=== PATIENT | female | born 1980 | race Caucasian/White ===

== ENCOUNTER 2018-07-17 12:00 | Outpatient (CLI) | payer OTHER | END 2018-07-17 12:01 | disposition home or self-care (01) | LOC: DTY/OP 12:00 | PROVIDERS: ATTEND Surgery | DX: E66.01 Morbid (severe) obesity due to excess calories (principal) | CPT/HCPCS: 97802 ==

== ENCOUNTER 2018-08-25 12:00 | Inpatient (IN) | payer OTHER ==
[2018-08-25 12:39] VITALS: BMI 40.6
[2018-09-03] MEDS ORDERED: CEFAZOLIN 2 GM/50 ML BAG ONE (07:44)
[2018-09-03] MEDS ORDERED: Heparin 5,000 UNITS/ML VIAL ONE (07:45)
[2018-09-03] MEDS ORDERED: Bupivacaine/Epinephrine 0.25% 30 ML VIAL ONE (09:06)
[2018-09-03] MEDS ORDERED: Famotidine/PF 20 mg/2ml Vial ONE (09:12)
[2018-09-03] MEDS ORDERED: Fentanyl 100 MCG/2 ML VIAL ONE ×2 (09:12)
[2018-09-03] MEDS ORDERED: Meperidine HCl/PF 25 MG/ML VIAL ONE (09:12)
[2018-09-03] MEDS ORDERED: Promethazine HCl 25 MG/ML VIAL ONE (11:04)
[2018-09-03] MEDS ORDERED: Ondansetron PF 4 MG/2 ML Vial IVP PRN ×2 (11:13→13:52)
[2018-09-03] MEDS ORDERED: diphenhydrAMINE 50 MG/ML VIAL IVP PRN ×2 (11:13→13:52)
[2018-09-03] MEDS ORDERED: diphenhydrAMINE 50 MG/ML VIAL IM PRN (11:13)
[2018-09-03] MEDS ORDERED: Promethazine HCl 25 MG/ML VIAL IM PRN ×2 (11:13→13:52)
[2018-09-03] MEDS ORDERED: diphenhydrAMINE 25 MG CAP PO PRN (11:13)
[2018-09-03] MEDS ORDERED: Naloxone HCl 0.4 mg/ml Vial IV PRN (11:13)
[2018-09-03] MEDS ORDERED: Zolpidem Tartrate 5 MG TAB PO PRN (11:13)
[2018-09-03] MEDS ORDERED: HYDROmorphone 10 mg/100 ml CADD IVPB PRN (11:13)
[2018-09-03] MEDS ORDERED: Communication Order-Pharmacy FS SCH (11:15)
[2018-09-03] MEDS ORDERED: Dextrose 5% in Water 1,000 ML IV PRN (13:52)
[2018-09-03] MEDS ORDERED: Hydrocodone-Acetamin 15 ML UDCUP PO PRN (13:52)
[2018-09-03] MEDS ORDERED: Dextrose 50% Abboject 50 ML SYRINGE SLOW IVP PRN (13:52)
[2018-09-03] MEDS ORDERED: hydrALAZINE 20 MG/ML VIAL SLOW IVP PRN (13:52)
[2018-09-03] MEDS ORDERED: PROVENTIL INHALER 6.7 G (200 INHALATIONS) INH PRN (14:00)
[2018-09-03] MEDS: D5 1/2 NS w/20 mEq KCL 1,000 ML IV SCH ×3 (14:24→21:49)
[2018-09-03] MEDS: Acetaminophen 1,000 MG in Premix Bag 1 BAG IVPB SCH ×2 (14:51→20:25)
--- NOTE | 2018-09-03 15:05 | OP ---
DATE OF PROCEDURE: 09/03/2018 PREOPERATIVE DIAGNOSIS: Morbid obesity with a BMI of 41. POSTOPERATIVE DIAGNOSES: 1. Morbid obesity with a BMI of 41. 2. Paraesophageal hiatal hernia. 3. Epigastric hernia. PROCEDURES: 1. Laparoscopic sleeve gastrectomy with [place] staple line reinforcement, 38-[place] bougie. 2. Laparoscopic repair of hiatal hernia without fundoplication or mesh. 3. Ventral hernia repair without mesh. 4. Esophagogastroduodenoscopy. ANESTHESIA: General. ESTIMATED BLOOD LOSS: Minimal. COMPLICATIONS: None. SPECIMEN: Stomach. FINDINGS: Hiatal hernia. TECHNIQUE: The patient was taken to the operating room, laid in the supine position on the operating room table. After general anesthetic was obtained, the arms and legs were double strapped to bariatric table. OG tube was used to decompress the stomach. The abdomen was prepped and draped in a sterile fashion. Left subcostal 5-mm Optiview trocar was placed in usual fashion and high-flow pneumoperitoneum was obtained. Left and right abdominal 12-mm ports as well as a right subcostal 5-mm port were placed under direct visualization. A 5-mm incision was made at the xiphoid and Teresa was used to raise the liver off the GE junction. Short gastrics were taken down to the mid body of stomach to left luis of diaphragm. Left luis, posterior fundus, and angle of His were completely dissected. Paraesophageal hiatal hernia was found. Short gastrics were taken down to a distance of 5 cm proximal to the pylorus. Bougie was brought in with its tip left in the antrum of the stomach. Multiple loads of the [place] stapling device were used to perform the sleeve. The first was fired at a distance of 6 cm proximal to the pylorus angled up towards the incisura. Multiple loads were fired up along the bougie. Stomach was completely transected at the angle of His. Stomach was removed from the left abdominal incision. This fascial defect was closed using GraNee needle and 0 Vicryl tie. Circumferential dissection of the esophagus was performed after opening the gastrohepatic ligament, bringing the GE junction back down into the abdominal cavity. Ethibond suture and a tie-knot system was used to reapproximate the crura posteriorly. Bougie was removed and an EGD was passed from the esophagus, stomach to the level of duodenum without obstruction. There was no air leakage or bleeding through the staple line. There was no evidence of stricture at the incisura. No evidence of stenosis at the GE junction or at the diaphragmatic hiatus. The EGD scope was used to decompress the stomach. It was pulled and removed. Teresa retractor was removed under direct visualization without bleeding. A few bleeders on the staple line were clipped using a laparoscopic clip. All incisions were infiltrated using local anesthetic. All ports were removed under camera visualization without bleeding. A pneumoperitoneum was let down. Vicryl was used to close the fascial defect from the left abdominal incision. All incisions were irrigated and closed using 4-0 Monocryl and Dermabond. Over the patient's palpable small epigastric hernia, a transverse incision was made. Cautery was dissected down to the hernia sac. The hernia sac was dissected away from the fascial edges. The hernia was closed using an interrupted Maxon suture. All incisions were closed using 4-0 Monocryl and Dermabond. The patient was sent to Recovery in stable condition. All instrument counts, needle counts, and lap counts were correct. Job ID: [id number]
[2018-09-03] MEDS ORDERED: Enoxaparin Sodium 40 MG/0.4 ML SYRINGE SC SCH (21:00)
[2018-09-04] MEDS: Acetaminophen 1,000 MG in Premix Bag 1 BAG IVPB SCH ×2 (02:20→08:36)
[2018-09-04] MEDS: D5 1/2 NS w/20 mEq KCL 1,000 ML IV SCH (04:08)
[2018-09-04 06:45] LABS: #Lymphocytes 1.2 thou/uL (1.20-3.40); #Neutrophils 12.1 thou/uL (1.40-6.50); %Basophils 0.1 % (0.0-1.0); %Eosinophils 0.1 % (0.0-10.0); %Lymphocytes 8.1 % (21.0-51.0); %Monocytes 7.1 % (0.0-10.0); %Neutrophils 84.6 % (42.0-75.0); Hemoglobin 13.9 g/dL (12.0-16.0); Mean Corpuscular HGB CONC 33.6 g/dL (32.0-36.0); Mean Corpuscular Hemoglobin 29.4 pg (27.0-31.0); Mean Corpuscular Volume 87.3 fL (78.0-98.0); Mean Platelet Volume 6.3 fL (7.4-10.4); Platelet Count 290 thou/uL (130-400); RBC Distribution Width 11.9 % (11.5-14.5); Red Blood Cell (RBC) Count 4.74 mill/uL (4.20-5.40); White Blood Cell (WBC) Count 14.3 thou/uL (4.8-10.8)
[2018-09-04 07:00] LABS: Anion Gap 11 mmol/L (10-20); BUN (Urea Nitrogen) 6 mg/dL (7.0-18.7); Calc. Creatinine Clearance 188 mL/min (70-130); Calcium 9.3 mg/dL (7.8-10.44); Carbon Dioxide 26 mmol/L (22-29); Chloride 106 mmol/L (98-107); Estimated GFR-MDRD 88; Glucose 120 mg/dL (70-105); Sodium 139 mmol/L (136-145)
[2018-09-04 07:56] VITALS: BP 123/81; TEMP 98.7
[2018-09-04] MEDS ORDERED: Pantoprazole 40 MG VIAL IVP SCH (09:00)
--- NOTE | 2018-09-04 09:47 | DIS ---
DATE OF ADMISSION: 09/03/2018 DATE OF DISCHARGE: 09/04/2018 ADMITTING DIAGNOSIS: Morbid obesity. DISCHARGE DIAGNOSES: 1. Morbid obesity. 2. Hiatal hernia. PROCEDURES: Laparoscopic sleeve gastrectomy and hiatal hernia repair by Dr. Gregory without complication. CONDITION ON DISCHARGE: Improved. STAFF: Dr. Gregory. HOSPITAL COURSE: On postop day 1, the patient is doing well. She is tolerating a liquid diet without difficulty. She is ambulatory. Her pain is controlled. Her wounds are clear. Vital signs have been stable. She is discharged home. Prescriptions for Lortab elixir, Zofran, pantoprazole had already been sent to her pharmacy. She will follow up with me in 2 weeks. Job ID: [id number]
[2018-09-04] MEDS ORDERED: Ondansetron ODT 4 MG TAB PO PRN (10:43)
== END 2018-09-04 11:22 | disposition home or self-care (01) | DRG 621 ==
LOC: SURG A 09-03 06:32
PROVIDERS: ADMIT Surgery; ATTEND Surgery
PROC: 0DB64Z3 Excision of Stomach, Percutaneous Endoscopic Approach, Vertical (ICD-10-PCS; principal; 2018-09-03)
PROC: 0BQT4ZZ Repair Diaphragm, Percutaneous Endoscopic Approach (ICD-10-PCS; 2018-09-03)
PROC: 0WQF4ZZ Repair Abdominal Wall, Percutaneous Endoscopic Approach (ICD-10-PCS; 2018-09-03)
DX: E66.01 Morbid (severe) obesity due to excess calories (principal); Z68.41 Body mass index [BMI] 40.0-44.9, adult; K44.9 Diaphragmatic hernia without obstruction or gangrene; K43.9 Ventral hernia without obstruction or gangrene
CPT/HCPCS: 36415; 80048; 85025; 88307; 88312; 94760; C9113; J0131; J1200; J1644; J1650; J2175; J2405; J2550; J3010; S0028

== ENCOUNTER 2018-08-25 12:03 | Outpatient (CLI) | payer OTHER ==
[2018-08-25 13:22] LABS: #Eosinphils 0.4 thou/uL (0.0-0.7); #Lymphocytes 1.8 thou/uL (1.20-3.40); #Monocytes 0.6 thou/uL (0.11-0.59); #Neutrophils 6.9 thou/uL (1.40-6.50); %Basophils 0.5 % (0.0-1.0); %Eosinophils 4.5 % (0.0-10.0); %Lymphocytes 18.7 % (21.0-51.0); %Monocytes 6.3 % (0.0-10.0); Hemoglobin 14.1 g/dL (12.0-16.0); Mean Corpuscular HGB CONC 34.5 g/dL (32.0-36.0); Mean Corpuscular Hemoglobin 29.9 pg (27.0-31.0); Mean Corpuscular Volume 86.7 fL (78.0-98.0); Mean Platelet Volume 6.5 fL (7.4-10.4); Platelet Count 352 thou/uL (130-400); RBC Distribution Width 12.1 % (11.5-14.5); Red Blood Cell (RBC) Count 4.71 mill/uL (4.20-5.40); White Blood Cell (WBC) Count 9.9 thou/uL (4.8-10.8)
[2018-08-25 13:32] LABS: BHCG - Serum Negative (NEGATIVE); Pregs Control Background? CLEAR/WHITE (CLR/WHITE); Pregs Control Bar Appear? YES (CONTROL BAR)
[2018-08-25 13:40] LABS: Hemoglobin A1c 4.9 % (4.0-6.0)
[2018-08-25 13:43] LABS: ALT (SGPT) 15 U/L (8-55); AST (SGOT) 20 U/L (5-34); Albumin 4.4 g/dL (3.5-5.0); Alkaline Phosphatase 93 U/L (40-150); Anion Gap 11 mmol/L (10-20); BUN (Urea Nitrogen) 11 mg/dL (7.0-18.7); Bilirubin, Direct 0.1 mg/dL (0.1-0.3); Bilirubin, Total 0.4 mg/dL (0.2-1.2); Calc. Creatinine Clearance 0 mL/min (70-130); Calcium 9.9 mg/dL (7.8-10.44); Carbon Dioxide 27 mmol/L (22-29); Chloride 103 mmol/L (98-107); Estimated GFR-MDRD 87; Globulin 2.9 g/dL (2.4-3.5); Glucose 90 mg/dL (70-105); Potassium 4.1 mmol/L (3.5-5.1); Protein, Total 7.3 g/dL (6.0-8.3); Sodium 137 mmol/L (136-145)
--- NOTE | 2018-08-25 14:59 | RAD ---
TWO VIEW CHEST: History: Pre-operative evaluation. FINDINGS: Lung nicholson are clear. Heart and mediastinum appear unremarkable. Osseous structures unremarkable. IMPRESSION: Unremarkable chest. POS: TPC
--- NOTE | 2018-08-25 17:56 | EKG ---
Test Reason : Blood Pressure : / mmHG Vent. Rate : 077 BPM Atrial Rate : 077 BPM P-R Int : 156 ms QRS Dur : 090 ms QT Int : 384 ms P-R-T Axes : 040 074 064 degrees QTc Int : 434 ms Normal sinus rhythm with sinus arrhythmia Low voltage QRS Borderline ECG When compared with ECG of 26-DEC-2008 12:21, No significant change was found Confirmed by CONOR GEORGE ([id number]) on 08/25/2018 5:56:14 PM Referred By: LITZY Confirmed By:CONOR GEORGE
== END 2018-08-25 12:04 | disposition home or self-care (01) ==
LOC: LABBT 12:03
PROVIDERS: ATTEND Surgery
DX: Z01.818 Encounter for other preprocedural examination (principal); E66.01 Morbid (severe) obesity due to excess calories
CPT/HCPCS: 71046; 80053; 80076; 83036; 84703; 85025; 93005; 93010

== ENCOUNTER 2018-11-30 15:47 | Outpatient (CLI) | payer OTHER ==
--- NOTE | 2018-12-16 15:49 | MMO ---
Bilateral MAMMO Bilat Screen [facility]. CLINICAL HISTORY: Patient is 38 years old and is seen for screening. The patient has no family history of breast cancer. The patient has no personal history of cancer. The patient has a history of bilateral Breast reduction in 2011 and left Ultrasound Guided Core Biopsy - benign. VIEWS: The views performed were: bilateral craniocaudal with tomosynthesis and bilateral mediolateral oblique with tomosynthesis. FILMS COMPARED: The present examination has been compared to prior imaging studies performed at [facility] on 07/13/2012, 07/16/2012 and 01/12/2015. MAMMOGRAM FINDINGS: Finding 1: There are benign appearing calcifications seen in both breasts. Finding 2: There is a biopsy clip seen in the left breast. There are no suspicious masses, suspicious calcifications, or new areas of architectural distortion. IMPRESSION: THERE IS NO MAMMOGRAPHIC EVIDENCE OF MALIGNANCY. A ROUTINE FOLLOW-UP MAMMOGRAM AT AGE 41 IS RECOMMENDED. THE RESULTS OF THIS EXAM WERE SENT TO THE PATIENT. ACR BI-RADS Category 2 - Benign finding MAMMOGRAPHY NOTE: 1. A negative mammogram report should not delay a biopsy if a dominant of clinically suspicious mass is present. 2. Approximately 10% to 15% of breast cancers are not detected by mammography. 3. Adenosis and dense breasts may obscure an underlying neoplasm.
== END 2018-11-30 15:48 | disposition home or self-care (01) ==
LOC: BICMAMMO 15:47
PROVIDERS: ATTEND Family Medicine
DX: Z12.31 Encounter for screening mammogram for malignant neoplasm of breast (principal)
CPT/HCPCS: 77063; 77067

== ENCOUNTER 2021-03-01 12:23 | Outpatient (CLI) | payer BC | END 2021-03-01 12:24 | disposition home or self-care (01) | LOC: BICMAMMO 12:23 | PROVIDERS: ATTEND Family Medicine | DX: Z12.31 Encounter for screening mammogram for malignant neoplasm of breast (principal); Z91.89 Other specified personal risk factors, not elsewhere classified; Z98.890 Other specified postprocedural states | CPT/HCPCS: 77063; 77067 ==

== ENCOUNTER 2021-10-16 10:59 | Outpatient (CLI) | payer BC ==
[2021-10-16 11:45] LABS: #Basophils 0.1 10x3/uL (0.0-0.2); #Eosinphils 0.3 10x3/uL (0.0-0.5); #Monocytes 0.6 10x3/uL (0.0-1.1); #Neutrophils 5.8 10x3/uL (1.5-8.4); %Basophils 0.6 % (0.0-2.0); %Eosinophils 3.7 % (0.0-6.0); %Lymphocytes 20.1 % (18.0-47.0); %Monocytes 6.8 % (0.0-10.0); %Neutrophils 68.6 % (40.0-75.0); Hemoglobin 14.4 g/dL (12.0-15.5); Mean Corpuscular HGB CONC 33.9 g/dL (32.0-36.0); Mean Corpuscular Hemoglobin 31.3 pg (27.0-33.0); Mean Corpuscular Volume 92.4 fl (81.6-98.3); Mean Platelet Volume 8.9 fl (7.4-10.4); Platelet Count 259 10x3/uL (150-450); RBC Distribution Width 12.2 % (11.5-14.5); White Blood Cell (WBC) Count 8.4 10x3/uL (3.5-10.5)
[2021-10-16 12:15] LABS: Anion Gap 11 mmol/L (10-20); BUN (Urea Nitrogen) 11 mg/dL (7.0-18.7); Calc. Creatinine Clearance 0 mL/min (70-130); Carbon Dioxide 26 mmol/L (22-29); Chloride 107 mmol/L (98-107); Glucose 90 mg/dL (70-105); Potassium 4.1 mmol/L (3.5-5.1); Sodium 140 mmol/L (136-145)
[2021-10-16 23:08] LABS: SARS-CoV-2 PCR by NAA Not Detected (NotDetected)
== END 2021-10-16 11:00 | disposition home or self-care (01) ==
LOC: LABBT 10:59
PROVIDERS: ATTEND Plastic Surgery
DX: Z01.812 Encounter for preprocedural laboratory examination (principal); K43.9 Ventral hernia without obstruction or gangrene; Z20.822 Contact with and (suspected) exposure to COVID-19
CPT/HCPCS: 80048; 85025; U0003; U0005

== ENCOUNTER 2021-10-19 09:44 | Day surgery (SDC) | payer BC ==
[2021-10-16 12:45] VITALS: BMI 28.5
[2021-10-19] MEDS ORDERED: Midazolam HCl 2 mg/2 ml Vial ONE ×2 (11:13→13:22)
[2021-10-19] MEDS ORDERED: Heparin 5,000 UNITS/ML VIAL ONE (11:13)
[2021-10-19] MEDS ORDERED: Gentamicin 80 MG/2 ML VIAL ONE (12:15)
[2021-10-19] MEDS ORDERED: EPINEPHrine 1 MG/ML AMP ONE ×3 (12:15→14:23)
[2021-10-19] MEDS ORDERED: Lidocaine 1% (PF) 30 ML VIAL ONE (12:15)
[2021-10-19] MEDS ORDERED: Bupivacaine 0.25% HCL 30 ML VIAL ONE (12:15)
[2021-10-19] MEDS ORDERED: Fentanyl 250 MCG/5 ML VIAL ONE ×2 (12:19→18:05)
[2021-10-19] MEDS ORDERED: Ketamine 50 MG/ML (10ML VIAL) ONE (12:19)
[2021-10-19] MEDS ORDERED: Dexmedetomidine 200 MCG/2 ML VIAL ONE (12:20)
[2021-10-19] MEDS ORDERED: ceFAZolin Sodium (SDC) 2 GM/100 ML BAG ONE (12:45)
[2021-10-19] MEDS ORDERED: Ondansetron PF 4 MG/2 ML Vial ONE (12:54)
[2021-10-19] MEDS ORDERED: Rocuronium Bromide 10 MG/ML (10ML VIAL) ONE (12:54)
[2021-10-19] MEDS ORDERED: ePHEDrine 50 MG/ML VIAL ONE (12:54)
[2021-10-19] MEDS ORDERED: PHENYLEPHRINE-NS 100 MCG/ML 10 ML SYRINGE ONE (12:54)
[2021-10-19] MEDS ORDERED: Lidocaine 1% PF 5 ML VIAL ONE (12:54)
[2021-10-19] MEDS ORDERED: PROPOFOL 200 MG/20 ML VIAL ONE (12:54)
[2021-10-19] MEDS ORDERED: Dexamethasone 20 MG/5 ML VIAL ONE (12:54)
[2021-10-19] MEDS ORDERED: Tranexamic Acid 1,000 MG/10 ML VIAL ONE ×2 (13:28→16:58)
[2021-10-19] MEDS ORDERED: Sodium Chloride 0.9% 40 ML ONE (15:23)
[2021-10-19] MEDS ORDERED: SUGAMMADEX SODIUM 200 MG/2 ML VIAL ONE (16:20)
[2021-10-19] MEDS ORDERED: HYDROcodone/Acetaminophen 5/325 mg Tablet ONE (19:33)
[2021-10-19] MEDS ORDERED: Ondansetron ODT 4 MG TAB ONE (20:12)
== END 2021-10-19 21:00 | disposition home or self-care (01) ==
LOC: SDC 09:44
PROVIDERS: ATTEND Plastic Surgery
PROC: 0JB80ZZ Excision of Abdomen Subcutaneous Tissue and Fascia, Open Approach (ICD-10-PCS; principal; 2021-10-19)
PROC: 0WUF0JZ Supplement Abdominal Wall with Synthetic Substitute, Open Approach (ICD-10-PCS; principal; 2021-10-19)
DX: L98.7 Excessive and redundant skin and subcutaneous tissue (principal); K43.9 Ventral hernia without obstruction or gangrene; J45.909 Unspecified asthma, uncomplicated; Z98.84 Bariatric surgery status
CPT/HCPCS: C1889; J0171; J0690; J1100; J1580; J1644; J2001; J2250; J2405; J2704; J3010; J3370; J3490; Q0162; S0020

== ENCOUNTER 2022-03-06 08:00 | Outpatient (CLI) | payer BC | END 2022-03-06 08:01 | disposition home or self-care (01) | LOC: BICMAMMO 08:00 | PROVIDERS: ATTEND Family Medicine | DX: Z12.31 Encounter for screening mammogram for malignant neoplasm of breast (principal); R92.1 Mammographic calcification found on diagnostic imaging of breast; Z91.89 Other specified personal risk factors, not elsewhere classified; Z98.890 Other specified postprocedural states | CPT/HCPCS: 77063; 77067 ==

== ENCOUNTER 2024-10-05 08:23 | Outpatient (CLI) | payer BC | END 2024-10-05 08:24 | disposition home or self-care (01) | LOC: RAD 08:23 | PROVIDERS: ATTEND Internal Medicine Critical Care Medicine | DX: R06.00 Dyspnea, unspecified (principal) | CPT/HCPCS: 71046 ==